=== PATIENT | male | born 1975 | race Two or more races ===

== ENCOUNTER 2016-09-16 11:03 | Inpatient (IN) | payer OTHER ==
[~2016-09-16] VITALS: Ht 182.9 cm; Wt 124.7 kg
[~2016-09-16 11:03] MED LIST: CYCLOBENZAPRINE10 MG ORAL; IBUPROFEN800 MG ORAL; NKM
[2016-09-16 12:11] LABS: BASOPHILS % (AUTO) 0.7 % (0.0-2.0); EOSINOPHILS % (AUTO) 1.8 % (0.0-3.0); LYMPHOCYTES % (AUTO) 16.8 % (20.0-45.0); MEAN CORPUSCULAR HEMOGLOBIN 27.4 PG (27.0-31.0); MEAN CORPUSCULAR HGB CONC 31.4 G/DL (32.0-36.0); MEAN CORPUSCULAR VOLUME 87 FL (80-99); MEAN PLATELET VOLUME 8.1 FL (6.5-10.1); MONOCYTES % (AUTO) 6.3 % (1.0-10.0); NEUTROPHILS % (AUTO) 74.4 % (45.0-75.0); PLATELET COUNT 212 K/UL (150-450); RED BLOOD COUNT 5.11 M/UL (4.70-6.10); WHITE BLOOD COUNT 7.2 K/UL (4.8-10.8)
[2016-09-16 12:21] LABS: ALANINE AMINOTRANSFERASE 15 U/L (3-41); ASPARTATE AMINO TRANSFERASE 17 U/L (5-40); CALCIUM 8.9 mg/dL (8.6-10.2); CARBON DIOXIDE 26 mEQ/L (20-30); CREATININE 1.2 mg/dL (0.7-1.2); GLOMERULAR FILTRATION RATE > 60 mL/min (>60)
[2016-09-16 12:22] LABS: ALBUMIN/GLOBULIN RATIO 1.1 (1.0-2.7); ANION GAP 13 (5-15); CHLORIDE 99 mEQ/L (98-107); HEMOLYSIS 47; POTASSIUM 4.3 mEQ/L (3.4-4.9); SODIUM 138 mEQ/L (135-145)
[2016-09-16 12:27] VITALS: BP 103/74
[2016-09-16 12:33] LABS: PROTHROMBIN TIME 9.8 SEC (9.30-11.50)
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
[2016-09-16 13:52] VITALS: BP 119/89
[2016-09-16 16:00] VITALS: BP 168/103
[2016-09-16] MEDS ORDERED: Cyclobenzaprine 10mg Tab ORAL PRN (17:00)
[2016-09-16] MEDS: Pantoprazole Inj IVP SCH (17:33)
[2016-09-16] MEDS: Norco 5mg/325mg tab ORAL PRN ×2 (17:33→23:04)
[2016-09-16 20:00] VITALS: BP 148/92
[2016-09-16 21:59] LABS: BASOPHILS % (AUTO) 0.8 % (0.0-2.0); EOSINOPHILS % (AUTO) 1.1 % (0.0-3.0); LYMPHOCYTES % (AUTO) 14.1 % (20.0-45.0); MEAN CORPUSCULAR HEMOGLOBIN 26.9 PG (27.0-31.0); MEAN CORPUSCULAR HGB CONC 31.1 G/DL (32.0-36.0); MEAN CORPUSCULAR VOLUME 86 FL (80-99); MEAN PLATELET VOLUME 8.8 FL (6.5-10.1); MONOCYTES % (AUTO) 5.4 % (1.0-10.0); NEUTROPHILS % (AUTO) 78.6 % (45.0-75.0); PLATELET COUNT 235 K/UL (150-450); RED BLOOD COUNT 5.34 M/UL (4.70-6.10); RED CELL DISTRIBUTION WIDTH 13.8 % (11.6-14.8); WHITE BLOOD COUNT 9.2 K/UL (4.8-10.8)
[2016-09-17] VITALS (12 sets, daily range): BP systolic 99–142; BP diastolic 54–89
[2016-09-17 07:04] LABS: BASOPHILS % (AUTO) 1.2 % (0.0-2.0); EOSINOPHILS % (AUTO) 3.2 % (0.0-3.0); LYMPHOCYTES % (AUTO) 25.4 % (20.0-45.0); MEAN CORPUSCULAR HEMOGLOBIN 27.5 PG (27.0-31.0); MEAN CORPUSCULAR HGB CONC 31.9 G/DL (32.0-36.0); MEAN CORPUSCULAR VOLUME 86 FL (80-99); MONOCYTES % (AUTO) 8.6 % (1.0-10.0); NEUTROPHILS % (AUTO) 61.6 % (45.0-75.0); PLATELET COUNT 206 K/UL (150-450); RED BLOOD COUNT 4.75 M/UL (4.70-6.10); RED CELL DISTRIBUTION WIDTH 13.9 % (11.6-14.8); WHITE BLOOD COUNT 5.7 K/UL (4.8-10.8)
[2016-09-17 07:10] LABS: ANION GAP 12 (5-15); CALCIUM 8.5 mg/dL (8.6-10.2); CARBON DIOXIDE 27 mEQ/L (20-30); CHLORIDE 104 mEQ/L (98-107); CREATININE 1.3 mg/dL (0.7-1.2); GLOMERULAR FILTRATION RATE > 60 mL/min (>60); HEMOLYSIS 3; POTASSIUM 4.4 mEQ/L (3.4-4.9); SODIUM 143 mEQ/L (135-145)
[2016-09-17] MEDS: Pantoprazole Inj IVP SCH (09:31)
[2016-09-17] MEDS: Norco 5mg/325mg tab ORAL PRN ×2 (09:33→17:15)
--- NOTE | 2016-09-17 10:33 | Pre-Procedure Note/Attestation ---
Pre-Procedure Note/Attestation Complete Prior to Procedure Planned Procedure: not applicable Procedure Narrative: egd Indications for Procedure Pre-Operative Diagnosis: gib Attestation I attest that I discussed the nature of the procedure; its benefits; risks and complications; and alternatives (and the risks and benefits of such alternatives ), prior to the procedure, with the patient (or the patient's legal industrial relations representative). I attest that, if there was a reasonable possibility of needing a blood transfusion, the patient (or the patient's legal industrial relations representative) was given the [facility] standardized written summary, pursuant to the Ronal Jayleen Blood Safety Act ([place] Health and Safety Code # 1645, as amended). I attest that I re-evaluated the patient just prior to the surgery and that there has been no change in the patient's H&P, except as documented below: MAURI GARCIA Sep 17, 2016 10:33
[2016-09-17] MEDS ORDERED: Norco 7.5mg/325mg tab ORAL PRN (10:45)
[2016-09-17] MEDS ORDERED: Ketorolac 30mg Inj IV PRN (10:45)
[2016-09-17] MEDS ORDERED: Midazolam 2mg/2ml Inj IVP PRN (10:45)
[2016-09-17] MEDS ORDERED: Metoclopramide 10mg/2ml Inj IVP PRN (10:45)
[2016-09-17] MEDS ORDERED: Ketorolac 60mg Inj IV PRN (10:45)
[2016-09-17] MEDS ORDERED: Hydromorphone 0.5mg/0.5ml inj IVP PRN (10:45)
[2016-09-17] MEDS ORDERED: Meperidine 25mg/ml Inj IV PRN (10:45)
[2016-09-17] MEDS ORDERED: Labetalol 5mg/ml 20ml vial IV PRN (10:45)
[2016-09-17] MEDS ORDERED: Norco 5mg/325mg tab ORAL PRN (10:45)
[2016-09-17] MEDS ORDERED: Atropine Inj 1mg/10ml Syr IV PRN (10:45)
[2016-09-17] MEDS ORDERED: LORazepam Inj 2mg/ml 1ml IV PRN (10:45)
[2016-09-17] MEDS ORDERED: LR 1000ml 1,000 ML IVLG SCH (10:45)
[2016-09-17] MEDS ORDERED: fentaNYL 100 mcg/2 mL IV PRN (10:45)
[2016-09-17] MEDS ORDERED: DiphenhydrAMINE 50mg/ml Inj IVP PRN (10:45)
[2016-09-17] MEDS ORDERED: Oxycodone/Acetaminophen 5-325 ORAL PRN (10:45)
--- NOTE | 2016-09-17 10:47 | Anethesia Preoperative Eval ---
Anesthesia Pre-op PMH/ROS General Date of Evaluation: Sep 17, 2016 Time of Evaluation: 11:37 Anesthesiologist: Maegan ASA Score: ASA 4 Mallampati Score Class I : Soft palate, uvula, fauces, pillars visible Class II: Soft palate, uvula, fauces visible Class III: Soft palate, base of uvula visible Class IV: Only hard plate visible Mallampati Classification: Class III Surgeon: Selvin Diagnosis: Abd Pain Surgical Procedure: EGD Anesthesia History: none Family History: no anesthesia problems Allergies: Coded Allergies: No Known Allergies (Unverified , 05/12/13) Medications: see eMAR Past Medical History Cardiovascular: Reports: HTN Musculoskeletal/Integumentary: Reports: other - T2 Paraplegic Other: obesity - BMI 37 Anesthesia Pre-op Phys. Exam Physician Exam Last Vital Signs Date Time Temp Pulse Resp B/P Pulse Ox O2 Delivery O2 Flow Rate FiO2 09/17/16 08:22 97.7 63 18 138/74 98 Room Air Airway Exam Mallampati Score: Class III MO: full ROM: limited Teeth: missing, intact Anesthesia Pre-op A/P Labs Hematology Test 09/16/16 12:00 09/17/16 06:25 White Blood Count 7.2 K/UL (4.8-10.8) 5.7 K/UL (4.8-10.8) Red Blood Count 5.11 M/UL (4.70-6.10) 4.75 M/UL (4.70-6.10) Hemoglobin 14.0 G/DL (14.2-18.0) L 13.1 G/DL (14.2-18.0) L Hematocrit 44.7 % (42.0-52.0) 41.0 % (42.0-52.0) L Mean Corpuscular Volume 87 FL (80-99) 86 FL (80-99) Mean Corpuscular Hemoglobin 27.4 PG (27.0-31.0) 27.5 PG (27.0-31.0) Mean Corpuscular Hemoglobin Concent 31.4 G/DL (32.0-36.0) L 31.9 G/DL (32.0-36.0) L Red Cell Distribution Width 14.0 % (11.6-14.8) 13.9 % (11.6-14.8) Platelet Count 212 K/UL (150-450) 206 K/UL (150-450) Mean Platelet Volume 8.1 FL (6.5-10.1) 8.0 FL (6.5-10.1) Neutrophils (%) (Auto) 74.4 % (45.0-75.0) 61.6 % (45.0-75.0) Lymphocytes (%) (Auto) 16.8 % (20.0-45.0) L 25.4 % (20.0-45.0) Monocytes (%) (Auto) 6.3 % (1.0-10.0) 8.6 % (1.0-10.0) Eosinophils (%) (Auto) 1.8 % (0.0-3.0) 3.2 % (0.0-3.0) H Basophils (%) (Auto) 0.7 % (0.0-2.0) 1.2 % (0.0-2.0) Coagulation Test 09/16/16 12:00 Prothrombin Time 9.8 SEC (9.30-11.50) Prothromb Time International Ratio 1.0 (0.9-1.1) Activated Partial Thromboplast Time 28 SEC (23-33) Chemistry Test 09/16/16 12:00 09/17/16 06:25 Sodium Level 138 mEQ/L (135-145) 143 mEQ/L (135-145) Potassium Level 4.3 mEQ/L (3.4-4.9) 4.4 mEQ/L (3.4-4.9) Chloride Level 99 mEQ/L (98-107) 104 mEQ/L (98-107) Carbon Dioxide Level 26 mEQ/L (20-30) 27 mEQ/L (20-30) Anion Gap 13 (5-15) 12 (5-15) Blood Urea Nitrogen 16 mg/dL (7-23) 15 mg/dL (7-23) Creatinine 1.2 mg/dL (0.7-1.2) 1.3 mg/dL (0.7-1.2) H Estimat Glomerular Filtration Rate > 60 mL/min (>60) > 60 mL/min (>60) Glucose Level 107 mg/dL (74-106) H 97 mg/dL (74-106) Calcium Level 8.9 mg/dL (8.6-10.2) 8.5 mg/dL (8.6-10.2) L Total Bilirubin 0.3 mg/dL (0.0-1.2) Aspartate Amino Transf (AST/SGOT) 17 U/L (5-40) Alanine Aminotransferase (ALT/SGPT) 15 U/L (3-41) Alkaline Phosphatase 90 U/L (40-129) Total Protein 7.0 g/dL (6.6-8.7) Albumin 3.8 g/dL (3.5-5.2) Globulin 3.2 g/dL Albumin/Globulin Ratio 1.1 (1.0-2.7) Risk Assessment & Plan Assessment: ASA 4 Plan: GA Status Change Before Surgery: Elmo Rivera MD Sep 17, 2016 10:47
--- NOTE | 2016-09-17 10:48 | 48 Hour Post Anesthesia Eval ---
Post Anesthesia Evaluation Procedure: EGD Date of Evaluation: Sep 17, 2016 Time of Evaluation: 14:41 Blood Pressure Systolic: 137 0: 84 Pulse Rate: 83 Respiratory Rate: 18 Temperature (Fahrenheit): 98.3 O2 Sat by Pulse Oximetry: 99 Airway: patent Nausea: No Vomiting: No Pain Intensity: 0 Hydration Status: adequate Cardiopulmonary Status: Stable Mental Status/LOC: patient returned to baseline Follow-up Care/Observations: 0 Post-Anesthesia Complications: 0 Follow-up care needed: N/A Elmo Issa MD Sep 17, 2016 10:48
--- NOTE | 2016-09-17 10:48 | Immediate Post-Op Evaluation ---
Immediate Post-Op Evalulation Immediate Post-Op Evalulation Procedure: EGD Date of Evaluation: Sep 17, 2016 Time of Evaluation: 12:29 IV Fluids: 300 LR Blood Products: 0 Estimated Blood Loss: 1 Urinary Output: 0 Blood Pressure Systolic: 115 Blood Pressure Diastolic: 56 Pulse Rate: 81 Respiratory Rate: 16 O2 Sat by Pulse Oximetry: 100 Temperature (Fahrenheit): 97 Pain Score (1-10): 0 Nausea: No Vomiting: No Complications 0 Patient Status: awake, reacts, patent, none Hydration Status: adequate Elmo Issa MD Sep 17, 2016 10:48
[2016-09-17] MEDS ORDERED: NS 550ML IV ONE ×2 (10:55→11:25)
[2016-09-17] MEDS ORDERED: Alfentanil 2ml Inj ONE (11:30)
[2016-09-17] MEDS ORDERED: Midazolam 2mg/2ml Inj ONE (11:30)
[2016-09-17] MEDS ORDERED: Propofol 10mg/ml 20ml IV ONE (11:30)
[2016-09-17] MEDS ORDERED: LR 1000ml ONE (11:30)
[2016-09-17] MEDS ORDERED: Lidocaine 1% MPF 10mg/ml 5ml ONE (11:30)
--- NOTE | 2016-09-17 11:57 | Pre-Procedure Note/Attestation ---
Pre-Procedure Note/Attestation Complete Prior to Procedure Planned Procedure: not applicable Procedure Narrative: egd Indications for Procedure Pre-Operative Diagnosis: gib Attestation I attest that I discussed the nature of the procedure; its benefits; risks and complications; and alternatives (and the risks and benefits of such alternatives ), prior to the procedure, with the patient (or the patient's legal community health program representative). I attest that, if there was a reasonable possibility of needing a blood transfusion, the patient (or the patient's legal community health program representative) was given the [facility] standardized written summary, pursuant to the Ronal Jayleen Blood Safety Act ([place] Health and Safety Code # 1645, as amended). I attest that I re-evaluated the patient just prior to the surgery and that there has been no change in the patient's H&P, except as documented below: MAURI GARCIA Sep 17, 2016 11:57
--- NOTE | 2016-09-17 12:05 | Endoscopy Procedure Note ---
Endoscopy Procedure Note Indication for Procedure: gib Procedures Performed: EGD Operative Findings/Diagnosis: gastritis Specimen: yes Pt Tolerated Procedure Well: Yes Estimated Blood Loss: none Anesthesiologist: jody Anesthesia: MAC Implant(s) used?: No 50 yrs or older w/o bx or poly: Not Applicable 10yrs. F/U not recommended: Not Applicable MAURI GARCIA Sep 17, 2016 12:05
--- NOTE | 2016-09-17 14:58 | History & Physical ---
History and Physical History & Physicial Dictated for Int Med-Dr Yeh no. [id number]. OBED HERNÁNDEZ Sep 17, 2016 14:58
[2016-09-17] MEDS: Sucralfate 1gm tab ORAL SCH ×3 (17:19→20:47)
--- NOTE | 2016-09-17 19:38 | Procedure Note ---
DATE OF PROCEDURE: 09/17/2016 SURGEON: Tad Montalvo M.D. PROCEDURE: Endoscopy with biopsy. ANESTHESIA: Elmo Issa M.D. INSTRUMENT: Olympus adult flexible upper endoscope. INDICATION: GI bleeding. REASON FOR PROCEDURE: The procedure, risks, benefits, and possible consequences, including hemorrhage, aspiration, perforation and infection, and alternative treatments, were explained to the patient/legal guardian by Dr. Tad Montalvo and the patient/legal guardian understood and accepted these risks. DESCRIPTION OF PROCEDURE: After informed consent was obtained and the patient was adequately sedated, the Olympus upper endoscope was advanced from the mouth into the second portion of the duodenum and retroflexion was performed in the stomach. The patient has diffuse gastritis. Random biopsy from antrum was obtained to rule out H. pylori infection, however, the rest of the examination was within normal limits. The patient tolerated the procedure very well without complication. SUMMARY OF FINDINGS: Gastritis, otherwise normal upper endoscopy examination. RECOMMENDATIONS: Follow up biopsies and treat accordingly. I would like to thank, Dr. Jay Yeh, for this kind referral. Tad Montalvo M.D. DR: Mitesh JOB#: [id number] CC: Jay Yeh M.D.; Fax#: [phone]
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
[2016-09-18] VITALS: BP 106/65
[2016-09-18 04:00] VITALS: BP 122/79
[2016-09-18 07:37] LABS: MEAN CORPUSCULAR HEMOGLOBIN 27.8 PG (27.0-31.0); MEAN CORPUSCULAR VOLUME 87 FL (80-99); MEAN PLATELET VOLUME 8.2 FL (6.5-10.1); PLATELET COUNT 195 K/UL (150-450); RED BLOOD COUNT 4.59 M/UL (4.70-6.10); RED CELL DISTRIBUTION WIDTH 13.8 % (11.6-14.8); WHITE BLOOD COUNT 5.9 K/UL (4.8-10.8)
[2016-09-18 07:59] LABS: ANION GAP 15 (5-15); CALCIUM 8.5 mg/dL (8.6-10.2); CARBON DIOXIDE 23 mEQ/L (20-30); CHLORIDE 103 mEQ/L (98-107); CREATININE 1.3 mg/dL (0.7-1.2); GLOMERULAR FILTRATION RATE > 60 mL/min (>60); HEMOLYSIS 8; SODIUM 141 mEQ/L (135-145)
[2016-09-18 08:00] VITALS: BP 136/87
[2016-09-18] MEDS: Pantoprazole Inj IVP SCH (08:13)
[2016-09-18] MEDS: Sucralfate 1gm tab ORAL SCH ×4 (08:13→20:08)
[2016-09-18] MEDS: Norco 5mg/325mg tab ORAL PRN ×3 (08:29→21:47)
[2016-09-18 08:33] LABS: BAND NEUTROPHILS % (MANUAL) 0 % (0-8); BASOPHILS % (MANUAL) 0 % (0-2); EOSINOPHILS % (MANUAL) 2 % (0-3); LYMPHOCYTES % (MANUAL) 30 % (20-45); NEUTROPHILS % (MANUAL) 63 % (45-75); PLATELET ESTIMATE ADEQUATE; PLATELET MORPHOLOGY NORMAL; TOTAL CELLS COUNTED 100
[2016-09-18 12:00] VITALS: BP 139/99
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
--- NOTE | 2016-09-18 14:03 | Cardiology Report ---
APPROVED REPORT EKG Measurement Heart [id number] Sinus tachycardia Low voltage QRS Cannot rule out Anterior infarct, age undetermined Abnormal ECG
[2016-09-18 16:00] VITALS: BP 137/79
--- NOTE | 2016-09-18 17:11 | Internal Med Progress Note ---
Subjective Date of Service: Sep 18, 2016 Physician Name Karson Hernández Attending Physician Jay Yeh MD Current Medications Medications (Trade) Dose Ordered Sig/Delores Route PRN Reason Start Time Stop Time Status Last Admin Dose Admin Acetaminophen/ Hydrocodone Bitart ([place] 5/325) 1 tab Q4H PRN ORAL Moderate Pain (Pain Scale 4-6) 09/16/16 16:45 09/23/16 16:44 09/18/16 08:29 Cyclobenzaprine HCl (Flexeril) 10 mg Q8H PRN ORAL MUSCLE SPASMS 09/16/16 17:00 10/16/16 16:59 Pantoprazole (Protonix) 40 mg DAILY IVP 09/16/16 18:00 10/16/16 17:59 09/18/16 08:13 Sucralfate (Carafate) 1 gm FOUR TIMES A DAY ORAL 09/17/16 15:00 10/17/16 14:59 09/18/16 13:31 Allergies: Coded Allergies: No Known Allergies (Unverified , 05/12/13) ROS Limited/Unobtainable: No Constitutional: Reports: no symptoms HEENT: Reports: no symptoms Cardiovascular: Reports: no symptoms Respiratory: Reports: no symptoms Gastrointestinal/Abdominal: Reports: rectal bleeding Genitourinary: Reports: no symptoms Neurologic/Psychiatric: Reports: no symptoms Subjective Cover for Int Med-Dr Yeh. Patient reports bright red bowel movement overnight. S/P endoscopy 09/17/16. Objective Last Vital Signs Date Time Temp Pulse Resp B/P Pulse Ox O2 Delivery O2 Flow Rate FiO2 09/18/16 16:00 98.1 92 20 137/79 98 Room Air 09/17/16 12:25 6.0 General Appearance: WD/WN, no apparent distress, alert EENT: PERRL/EOMI, normal ENT inspection Neck: non-tender, normal alignment, supple Cardiovascular: normal peripheral pulses, normal rate, regular rhythm, no gallop/murmur, no JVD Respiratory/Chest: chest wall non-tender, lungs clear, normal breath sounds, no respiratory distress, no accessory muscle use Abdomen: no organomegaly, no mass, decreased bowel sounds, guarding, tender Extremities: normal range of motion 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, other - paraplegia Skin: normal pigmentation, warm/dry Laboratory Tests Test 09/18/16 06:35 White Blood Count 5.9 K/UL (4.8-10.8) Red Blood Count 4.59 M/UL (4.70-6.10) L Hemoglobin 12.7 G/DL (14.2-18.0) L Hematocrit 39.8 % (42.0-52.0) L Mean Corpuscular Volume 87 FL (80-99) Mean Corpuscular Hemoglobin 27.8 PG (27.0-31.0) Mean Corpuscular Hemoglobin Concent 32.0 G/DL (32.0-36.0) Red Cell Distribution Width 13.8 % (11.6-14.8) Platelet Count 195 K/UL (150-450) Mean Platelet Volume 8.2 FL (6.5-10.1) Neutrophils (%) (Auto) % (45.0-75.0) Lymphocytes (%) (Auto) % (20.0-45.0) Monocytes (%) (Auto) % (1.0-10.0) Eosinophils (%) (Auto) % (0.0-3.0) Basophils (%) (Auto) % (0.0-2.0) Differential Total Cells Counted 100 Neutrophils % (Manual) 63 % (45-75) Lymphocytes % (Manual) 30 % (20-45) Monocytes % (Manual) 5 % (1-10) Eosinophils % (Manual) 2 % (0-3) Basophils % (Manual) 0 % (0-2) Band Neutrophils 0 % (0-8) Platelet Estimate Adequate Platelet Morphology Normal Red Blood Cell Morphology Normal Sodium Level 141 mEQ/L (135-145) Potassium Level 4.0 mEQ/L (3.4-4.9) Chloride Level 103 mEQ/L (98-107) Carbon Dioxide Level 23 mEQ/L (20-30) Anion Gap 15 (5-15) Blood Urea Nitrogen 13 mg/dL (7-23) Creatinine 1.3 mg/dL (0.7-1.2) H Estimat Glomerular Filtration Rate > 60 mL/min (>60) Glucose Level 93 mg/dL (74-106) Calcium Level 8.5 mg/dL (8.6-10.2) L Intake and Output 09/17/16 09/18/16 19:00 07:00 Intake Total 1550 ml 705 ml Output Total 980 ml 500 ml Balance 570 ml 205 ml Intake Oral 600 ml 480 ml IV Total 950 ml 225 ml Output Urine Total 980 ml 500 ml Estimated Blood Loss 0 ml Assessment/Plan Problem List: (1) Melena (2) Paralysis (3) Rectal hemorrhage Assessment & Plan: Due to gastritis due to alcohol. (4) Gastritis Assessment & Plan: S/P endoscopy 09/17/16. See GI note. Continue protonix and carafate. Status: progressing Assessment/Plan Discharge planning. KARSON HERNÁNDEZ Sep 18, 2016 17:11
[2016-09-18 20:07] VITALS: BP 153/97
[2016-09-19 00:25] VITALS: BP 137/83
[2016-09-19 04:12] VITALS: BP 139/95
[2016-09-19 07:09] LABS: BASOPHILS % (AUTO) 0.8 % (0.0-2.0); EOSINOPHILS % (AUTO) 1.7 % (0.0-3.0); LYMPHOCYTES % (AUTO) 23.3 % (20.0-45.0); MEAN CORPUSCULAR HEMOGLOBIN 27.8 PG (27.0-31.0); MEAN CORPUSCULAR HGB CONC 32.3 G/DL (32.0-36.0); MEAN CORPUSCULAR VOLUME 86 FL (80-99); MEAN PLATELET VOLUME 8.2 FL (6.5-10.1); MONOCYTES % (AUTO) 8.6 % (1.0-10.0); NEUTROPHILS % (AUTO) 65.6 % (45.0-75.0); PLATELET COUNT 219 K/UL (150-450); RED BLOOD COUNT 4.69 M/UL (4.70-6.10); RED CELL DISTRIBUTION WIDTH 13.9 % (11.6-14.8)
[2016-09-19 07:35] LABS: CREATININE 1.4 mg/dL (0.7-1.2); GLOMERULAR FILTRATION RATE 55.8 mL/min (>60); POTASSIUM 4.1 mEQ/L (3.4-4.9)
[2016-09-19 07:55] VITALS: BP 136/90
[2016-09-19] MEDS: Pantoprazole Inj IVP SCH (10:04)
[2016-09-19] MEDS: Sucralfate 1gm tab ORAL SCH ×4 (10:04→20:25)
[2016-09-19 11:31] VITALS: BP 139/88
[2016-09-19] MEDS: Norco 5mg/325mg tab ORAL PRN ×2 (12:22→20:25)
--- NOTE | 2016-09-19 13:58 | Internal Med Progress Note ---
Subjective Date of Service: Sep 19, 2016 Physician Name JoyceObed Attending Physician Jay Yeh MD Current Medications Medications (Trade) Dose Ordered Sig/Delores Route PRN Reason Start Time Stop Time Status Last Admin Dose Admin Acetaminophen/ Hydrocodone Bitart ([place] 5/325) 1 tab Q4H PRN ORAL Moderate Pain (Pain Scale 4-6) 09/16/16 16:45 09/23/16 16:44 09/19/16 12:22 Cyclobenzaprine HCl (Flexeril) 10 mg Q8H PRN ORAL MUSCLE SPASMS 09/16/16 17:00 10/16/16 16:59 Pantoprazole (Protonix) 40 mg DAILY IVP 09/16/16 18:00 10/16/16 17:59 09/19/16 10:04 Sucralfate (Carafate) 1 gm FOUR TIMES A DAY ORAL 09/17/16 15:00 10/17/16 14:59 09/19/16 10:04 Allergies: Coded Allergies: No Known Allergies (Unverified , 05/12/13) ROS Limited/Unobtainable: No Constitutional: Reports: no symptoms HEENT: Reports: no symptoms Cardiovascular: Reports: no symptoms Respiratory: Reports: no symptoms Gastrointestinal/Abdominal: Reports: rectal bleeding Genitourinary: Reports: no symptoms Neurologic/Psychiatric: Reports: no symptoms Subjective Cover for Int Med-Dr Yeh. Patient reports bright red bowel movement overnight. S/P endoscopy 09/17/16. Objective Last Vital Signs Date Time Temp Pulse Resp B/P Pulse Ox O2 Delivery O2 Flow Rate FiO2 09/19/16 11:31 97.5 68 18 139/88 97 Room Air 09/17/16 12:25 6.0 Laboratory Tests Test 09/19/16 06:15 White Blood Count 8.0 K/UL (4.8-10.8) Red Blood Count 4.69 M/UL (4.70-6.10) L Hemoglobin 13.0 G/DL (14.2-18.0) L Hematocrit 40.4 % (42.0-52.0) L Mean Corpuscular Volume 86 FL (80-99) Mean Corpuscular Hemoglobin 27.8 PG (27.0-31.0) Mean Corpuscular Hemoglobin Concent 32.3 G/DL (32.0-36.0) Red Cell Distribution Width 13.9 % (11.6-14.8) Platelet Count 219 K/UL (150-450) Mean Platelet Volume 8.2 FL (6.5-10.1) Neutrophils (%) (Auto) 65.6 % (45.0-75.0) Lymphocytes (%) (Auto) 23.3 % (20.0-45.0) Monocytes (%) (Auto) 8.6 % (1.0-10.0) Eosinophils (%) (Auto) 1.7 % (0.0-3.0) Basophils (%) (Auto) 0.8 % (0.0-2.0) Sodium Level 143 mEQ/L (135-145) Potassium Level 4.1 mEQ/L (3.4-4.9) Chloride Level 105 mEQ/L (98-107) Carbon Dioxide Level 22 mEQ/L (20-30) Anion Gap 16 (5-15) H Blood Urea Nitrogen 13 mg/dL (7-23) Creatinine 1.4 mg/dL (0.7-1.2) H Estimat Glomerular Filtration Rate 55.8 mL/min (>60) Glucose Level 97 mg/dL (74-106) Calcium Level 9.0 mg/dL (8.6-10.2) Intake and Output 09/18/16 09/19/16 19:00 07:00 Intake Total 720 ml Output Total 500 ml 1000 ml Balance 220 ml -1000 ml Intake Oral 720 ml Output Urine Total 500 ml 1000 ml # Voids 3 Objective General Appearance: WD/WN, no apparent distress, alert EENT: PERRL/EOMI, normal ENT inspection Neck: non-tender, normal alignment, supple Cardiovascular: normal peripheral pulses, normal rate, regular rhythm, no gallop/murmur, no JVD Respiratory/Chest: chest wall non-tender, lungs clear, normal breath sounds, no respiratory distress, no accessory muscle use Abdomen: no organomegaly, no mass, decreased bowel sounds, guarding, tender Extremities: normal range of motion 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 (4) Gastritis Assessment & Plan: S/P endoscopy 09/17/16. See GI note. Continue protonix and carafate. Status: progressing Assessment/Plan Discharge planning. OBED HERNÁNDEZ Sep 19, 2016 13:58
--- NOTE | 2016-09-19 15:05 | General Progress Note ---
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 Montalvo as outpt SUMMARY OF FINDINGS: Gastritis, otherwise normal upper endoscopy examination. Subjective Allergies: Coded Allergies: No Known Allergies (Unverified , 05/12/13) Subjective c/o slight BRBPR no BM x 3 days no abd pain tolerating po Objective Last 24 Hour Vital Signs Date Time Temp Pulse Resp B/P Pulse Ox O2 Delivery O2 Flow Rate FiO2 09/19/16 11:31 97.5 68 18 139/88 97 Room Air 09/19/16 08:00 97 09/19/16 07:55 97.3 85 18 136/90 97 Room Air 09/19/16 04:12 98.7 73 21 139/95 97 Room Air 09/19/16 04:00 66 09/19/16 00:25 97.1 89 20 137/83 96 Room Air 09/19/16 00:00 64 09/18/16 20:07 98.1 81 14 153/97 100 Room Air 09/18/16 20:00 80 09/18/16 17:43 77 09/18/16 16:00 98.1 92 20 137/79 98 Room Air Intake and Output 09/18/16 09/19/16 19:00 07:00 Intake Total 720 ml Output Total 500 ml 1000 ml Balance 220 ml -1000 ml Intake Oral 720 ml Output Urine Total 500 ml 1000 ml # Voids 3 Laboratory Tests 09/19/16 06:15: White Blood Count 8.0, Red Blood Count 4.69L, Hemoglobin 13.0L, Hematocrit 40.4L , Mean Corpuscular Volume 86, Mean Corpuscular Hemoglobin 27.8, Mean Corpuscular Hemoglobin Concent 32.3, Red Cell Distribution Width 13.9, Platelet Count 219, Mean Platelet Volume 8.2, Neutrophils (%) (Auto) 65.6, Lymphocytes (% ) (Auto) 23.3, Monocytes (%) (Auto) 8.6, Eosinophils (%) (Auto) 1.7, Basophils ( %) (Auto) 0.8, Sodium Level 143, Potassium Level 4.1, Chloride Level 105, Carbon Dioxide Level 22, Anion Gap 16H, Blood Urea Nitrogen 13, Creatinine 1.4H , Estimat Glomerular Filtration Rate 55.8, Glucose Level 97, Calcium Level 9.0 Height (Feet): 6 Height (Inches): 0.00 Weight (Pounds): 275 Objective NCAT supple CTA RRR Soft NT ND No edema ZENOBIA NADINO Sep 19, 2016 15:05
[2016-09-19 16:00] VITALS: BP 136/62
[2016-09-19] MEDS ORDERED: Miralax 17gm pkt ORAL PRN (16:45)
[2016-09-19] MEDS: Docusate 100mg cap ORAL SCH (17:47)
[2016-09-19 20:00] VITALS: BP 145/89
[2016-09-20] MEDS: Norco 5mg/325mg tab ORAL PRN ×3 (00:24→20:38)
[2016-09-20 00:55] VITALS: BP 129/69
[2016-09-20 04:00] VITALS: BP 125/87
[2016-09-20 06:56] LABS: BASOPHILS % (AUTO) 1.1 % (0.0-2.0); EOSINOPHILS % (AUTO) 2.4 % (0.0-3.0); LYMPHOCYTES % (AUTO) 32.3 % (20.0-45.0); MEAN CORPUSCULAR HEMOGLOBIN 27.9 PG (27.0-31.0); MEAN CORPUSCULAR HGB CONC 32.6 G/DL (32.0-36.0); MEAN CORPUSCULAR VOLUME 86 FL (80-99); MEAN PLATELET VOLUME 6.9 FL (6.5-10.1); MONOCYTES % (AUTO) 7.1 % (1.0-10.0); NEUTROPHILS % (AUTO) 57.1 % (45.0-75.0); PLATELET COUNT 224 K/UL (150-450); RED BLOOD COUNT 4.81 M/UL (4.70-6.10); RED CELL DISTRIBUTION WIDTH 14.4 % (11.6-14.8); WHITE BLOOD COUNT 9.9 K/UL (4.8-10.8)
[2016-09-20 07:08] LABS: ANION GAP 11 (5-15); CALCIUM 8.8 mg/dL (8.6-10.2); CARBON DIOXIDE 26 mEQ/L (20-30); CHLORIDE 104 mEQ/L (98-107); CREATININE 1.2 mg/dL (0.7-1.2); GLOMERULAR FILTRATION RATE > 60 mL/min (>60); HEMOLYSIS 3; POTASSIUM 4.3 mEQ/L (3.4-4.9); SODIUM 141 mEQ/L (135-145)
[2016-09-20 08:00] VITALS: BP 126/72
[2016-09-20] MEDS: Sucralfate 1gm tab ORAL SCH ×4 (08:54→20:37)
[2016-09-20] MEDS: Docusate 100mg cap ORAL SCH ×2 (08:54→18:16)
[2016-09-20 12:00] VITALS: BP 112/76
--- NOTE | 2016-09-20 13:16 | General Progress Note ---
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 Montalvo as outpt SUMMARY OF FINDINGS: Gastritis, otherwise normal upper endoscopy examination. Subjective Allergies: Coded Allergies: No Known Allergies (Unverified , 05/12/13) Subjective c/o slight BRBPR (+) BM no abd pain tolerating po Objective Last 24 Hour Vital Signs Date Time Temp Pulse Resp B/P Pulse Ox O2 Delivery O2 Flow Rate FiO2 09/20/16 12:00 97.7 70 19 112/76 99 Room Air 09/20/16 08:00 97.3 70 19 126/72 99 Room Air 09/20/16 04:00 97.0 69 19 125/87 98 Room Air 09/20/16 00:55 97.2 56 21 129/69 100 Room Air 09/19/16 21:24 98.2 09/19/16 20:00 98.2 72 17 145/89 98 Room Air 09/19/16 16:00 97.7 84 20 136/62 94 Room Air Intake and Output 09/19/16 09/20/16 19:00 07:00 Intake Total 440 ml 360 ml Output Total 900 ml 500 ml Balance -460 ml -140 ml Intake Oral 440 ml 360 ml Output Urine Total 900 ml 500 ml # Voids 2 Laboratory Tests 09/19/16 19:50: Stool Occult Blood Negative 09/20/16 06:10: White Blood Count 9.9, Red Blood Count 4.81, Hemoglobin 13.4L, Hematocrit 41.2L , Mean Corpuscular Volume 86, Mean Corpuscular Hemoglobin 27.9, Mean Corpuscular Hemoglobin Concent 32.6, Red Cell Distribution Width 14.4, Platelet Count 224, Mean Platelet Volume 6.9, Neutrophils (%) (Auto) 57.1, Lymphocytes (% ) (Auto) 32.3, Monocytes (%) (Auto) 7.1, Eosinophils (%) (Auto) 2.4, Basophils ( %) (Auto) 1.1, Sodium Level 141, Potassium Level 4.3, Chloride Level 104, Carbon Dioxide Level 26, Anion Gap 11, Blood Urea Nitrogen 13, Creatinine 1.2, Estimat Glomerular Filtration Rate > 60, Glucose Level 103, Calcium Level 8.8 Height (Feet): 6 Height (Inches): 0.00 Weight (Pounds): 275 Objective NCAT supple CTA RRR Soft NT ND No edema ZENOBIA ANDINO Sep 20, 2016 13:16
[2016-09-20 16:15] VITALS: BP 100/66
--- NOTE | 2016-09-20 17:44 | Internal Med Progress Note ---
Subjective Physician Name CookKarson castellanos Attending Physician Jay Yeh MD Current Medications Medications (Trade) Dose Ordered Sig/Delores Route PRN Reason Start Time Stop Time Status Last Admin Dose Admin Acetaminophen/ Hydrocodone Bitart ([place] 5/325) 1 tab Q4H PRN ORAL Moderate Pain (Pain Scale 4-6) 09/16/16 16:45 09/23/16 16:44 09/20/16 13:46 Cyclobenzaprine HCl (Flexeril) 10 mg Q8H PRN ORAL MUSCLE SPASMS 09/16/16 17:00 10/16/16 16:59 09/20/16 00:28 Docusate Sodium (Colace) 100 mg TWICE A DAY ORAL 09/19/16 18:00 10/19/16 17:59 09/20/16 08:54 Pantoprazole (Protonix) 40 mg DAILY ORAL 09/20/16 09:00 10/20/16 08:59 09/20/16 08:54 Polyethylene Glycol (Miralax) 17 gm DAILY PRN ORAL Constipation 09/19/16 16:45 10/19/16 16:44 09/19/16 17:47 Sucralfate (Carafate) 1 gm FOUR TIMES A DAY ORAL 09/17/16 15:00 10/17/16 14:59 09/20/16 13:45 Allergies: Coded Allergies: No Known Allergies (Unverified , 05/12/13) ROS Limited/Unobtainable: No Constitutional: Reports: no symptoms HEENT: Reports: no symptoms Cardiovascular: Reports: no symptoms Respiratory: Reports: no symptoms Gastrointestinal/Abdominal: Reports: rectal bleeding Genitourinary: Reports: no symptoms Neurologic/Psychiatric: Reports: no symptoms Subjective Cover for Int Med-Dr Yeh. Patient reports bright red bowel movement overnight. S/P endoscopy 09/17/16. Objective Last Vital Signs Date Time Temp Pulse Resp B/P Pulse Ox O2 Delivery O2 Flow Rate FiO2 09/20/16 16:15 97.5 76 18 100/66 100 Room Air 09/17/16 12:25 6.0 Laboratory Tests Test 09/19/16 19:50 09/20/16 06:10 Stool Occult Blood Negative (NEGATIVE) White Blood Count 9.9 K/UL (4.8-10.8) Red Blood Count 4.81 M/UL (4.70-6.10) Hemoglobin 13.4 G/DL (14.2-18.0) L Hematocrit 41.2 % (42.0-52.0) L Mean Corpuscular Volume 86 FL (80-99) Mean Corpuscular Hemoglobin 27.9 PG (27.0-31.0) Mean Corpuscular Hemoglobin Concent 32.6 G/DL (32.0-36.0) Red Cell Distribution Width 14.4 % (11.6-14.8) Platelet Count 224 K/UL (150-450) Mean Platelet Volume 6.9 FL (6.5-10.1) Neutrophils (%) (Auto) 57.1 % (45.0-75.0) Lymphocytes (%) (Auto) 32.3 % (20.0-45.0) Monocytes (%) (Auto) 7.1 % (1.0-10.0) Eosinophils (%) (Auto) 2.4 % (0.0-3.0) Basophils (%) (Auto) 1.1 % (0.0-2.0) Sodium Level 141 mEQ/L (135-145) Potassium Level 4.3 mEQ/L (3.4-4.9) Chloride Level 104 mEQ/L (98-107) Carbon Dioxide Level 26 mEQ/L (20-30) Anion Gap 11 (5-15) Blood Urea Nitrogen 13 mg/dL (7-23) Creatinine 1.2 mg/dL (0.7-1.2) Estimat Glomerular Filtration Rate > 60 mL/min (>60) Glucose Level 103 mg/dL (74-106) Calcium Level 8.8 mg/dL (8.6-10.2) Intake and Output 09/19/16 09/20/16 19:00 07:00 Intake Total 440 ml 360 ml Output Total 900 ml 500 ml Balance -460 ml -140 ml Intake Oral 440 ml 360 ml Output Urine Total 900 ml 500 ml # Voids 2 Objective General Appearance: WD/WN, no apparent distress, alert EENT: PERRL/EOMI, normal ENT inspection Neck: non-tender, normal alignment, supple Cardiovascular: normal peripheral pulses, normal rate, regular rhythm, no gallop/murmur, no JVD Respiratory/Chest: chest wall non-tender, lungs clear, normal breath sounds, no respiratory distress, no accessory muscle use Abdomen: no organomegaly, no mass, decreased bowel sounds, guarding, tender Extremities: normal range of motion 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 (4) Gastritis Assessment & Plan: S/P endoscopy 09/17/16. See GI note. Continue protonix and carafate. Status: progressing Assessment/Plan Discharge planning. KARSON COOK Sep 20, 2016 17:44
[2016-09-20 20:27] VITALS: BP 110/68
[2016-09-21] VITALS: BP 108/74
[2016-09-21 05:55] VITALS: BP 121/69
[2016-09-21 07:39] LABS: BASOPHILS % (AUTO) 0.6 % (0.0-2.0); EOSINOPHILS % (AUTO) 2.9 % (0.0-3.0); LYMPHOCYTES % (AUTO) 26.1 % (20.0-45.0); MEAN CORPUSCULAR HEMOGLOBIN 26.7 PG (27.0-31.0); MEAN CORPUSCULAR HGB CONC 30.3 G/DL (32.0-36.0); MEAN CORPUSCULAR VOLUME 88 FL (80-99); NEUTROPHILS % (AUTO) 65.4 % (45.0-75.0); PLATELET COUNT 273 K/UL (150-450); RED BLOOD COUNT 5.35 M/UL (4.70-6.10); RED CELL DISTRIBUTION WIDTH 13.7 % (11.6-14.8); WHITE BLOOD COUNT 9.6 K/UL (4.8-10.8)
[2016-09-21 08:00] VITALS: BP 119/73
[2016-09-21 08:01] LABS: ANION GAP 15 (5-15); CALCIUM 9.2 mg/dL (8.6-10.2); CARBON DIOXIDE 25 mEQ/L (20-30); CHLORIDE 102 mEQ/L (98-107); CREATININE 1.3 mg/dL (0.7-1.2); GLOMERULAR FILTRATION RATE > 60 mL/min (>60); HEMOLYSIS 3; POTASSIUM 3.8 mEQ/L (3.4-4.9); SODIUM 142 mEQ/L (135-145)
[2016-09-21] MEDS: Sucralfate 1gm tab ORAL SCH ×2 (08:41→12:37)
[2016-09-21] MEDS: Docusate 100mg cap ORAL SCH (08:41)
[2016-09-21] MEDS: Norco 5mg/325mg tab ORAL PRN (11:42)
[2016-09-21 12:00] VITALS: BP 103/55
--- NOTE | 2016-09-21 13:59 | Discharge Summary ---
Discharge Summary Hospital Course Date of Admission Sep 16, 2016 at 12:02 Date of Discharge Admitting Diagnosis GI BLEED SHANAE Rene is a 41 year old male who was admitted on Sep 16, 2016 at 12:02 for Gastrointestinal Bleed Hospital Course Dictated for Int Med-Dr Yeh no. [id number]. Discharge Discharge Disposition Patient was discharged to Home (01) Discharge Diagnoses: OBED HERNÁNDEZ Sep 21, 2016 13:59
[2016-09-21] MEDS ORDERED: PROTONIX40 MG ORAL (14:03)
[2016-09-21] MEDS ORDERED: CARAFATE1 G1 ORAL (14:03)
--- NOTE | 2016-09-21 17:07 | General Progress Note ---
Assessment/Plan Assessment/Plan Assessment/Plan Problems: (1) Rectal hemorrhage ICD Codes: K62.5 - Hemorrhage of anus and rectum SNOMED: 75698411 (2) Muscle strain ICD Codes: T14.8 - Other injury of unspecified body region SNOMED: 51641273 (3) Gastritis ICD Codes: K29.70 - Gastritis, unspecified, without bleeding SNOMED: 1925510 Status: stable Assessment/Plan Resolved BRBPR monitor H&H, stable regular diet, tolerating OB stool uncollected fu labs fu biopsies patient can f/u with Dr. Montalvo as outpt SUMMARY OF FINDINGS: Gastritis, otherwise normal upper endoscopy examination. Subjective Allergies: Coded Allergies: No Known Allergies (Unverified , 05/12/13) Subjective (+) BM no further BRBPR no abd pain tolerating po Objective Last 24 Hour Vital Signs Date Time Temp Pulse Resp B/P Pulse Ox O2 Delivery O2 Flow Rate FiO2 09/21/16 12:41 96.4 09/21/16 12:00 96.4 79 16 103/55 99 Room Air 09/21/16 08:00 97.5 75 16 119/73 98 Room Air 09/21/16 05:55 97.3 85 18 121/69 95 Room Air 09/21/16 00:00 97.3 63 18 108/74 94 Room Air 09/20/16 20:27 98.1 77 18 110/68 99 Room Air Intake and Output 09/20/16 09/21/16 18:59 06:59 Intake Total 240 ml Output Total 500 ml Balance -260 ml Intake Oral 240 ml Output Urine Total 500 ml # Voids 1 Laboratory Tests 09/21/16 05:20: White Blood Count 9.6, Red Blood Count 5.35, Hemoglobin 14.3, Hematocrit 47.2, Mean Corpuscular Volume 88, Mean Corpuscular Hemoglobin 26.7L, Mean Corpuscular Hemoglobin Concent 30.3L, Red Cell Distribution Width 13.7, Platelet Count 273, Mean Platelet Volume 7.0, Neutrophils (%) (Auto) 65.4, Lymphocytes (%) (Auto) 26.1, Monocytes (%) (Auto) 5.0, Eosinophils (%) (Auto) 2.9, Basophils (%) (Auto ) 0.6, Sodium Level 142, Potassium Level 3.8, Chloride Level 102, Carbon Dioxide Level 25, Anion Gap 15, Blood Urea Nitrogen 14, Creatinine 1.3H, Estimat Glomerular Filtration Rate > 60, Glucose Level 89, Calcium Level 9.2 Height (Feet): 6 Height (Inches): 0.00 Weight (Pounds): 275 Objective NCAT supple CTA RRR Soft NT ND No edema ZENOBIA ANDINO Sep 21, 2016 17:07
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
== END 2016-09-21 15:10 | disposition home or self-care (01) | DRG 241 ==
LOC: ENRESERVTM → ENRESERVDT → ENRESERV → EMR 11:54 → 2E 12:02 → EDBEDREQ 12:34 → 3E 09-19 16:28
PROC: 0DB68ZX Excision of Stomach, Via Natural or Artificial Opening Endoscopic, Diagnostic (ICD-10-PCS; principal; 2016-09-17 12:01)
DX: K29.01 Acute gastritis with bleeding (principal); G82.20 Paraplegia, unspecified; K92.1 Melena; W34.00XS Accidental discharge from unspecified firearms or gun, sequela; Z88.8 Allergy status to other drugs, medicaments and biological substances
CPT/HCPCS: 36415; 71010; 80048; 80053; 82270; 85007; 85025; 85610; 85730; 86850; 86900; 86901; 93005; 94003; 94150; J2250; J3490